=== PATIENT | male | born 1940 | race Caucasian/White ===

== ENCOUNTER 2020-10-08 08:55 | Day surgery (SDC) | payer OTHER, MEDICARE ==
[2020-10-05 16:04] VITALS: BMI 21.7
[2020-10-08] MEDS ORDERED: BUPIVACAINE HCL/PF 2.5 MG/ML - 30 ML VIAL IJ ONE (09:10)
[2020-10-08] MEDS ORDERED: MIDAZOLAM HCL 2 MG/2 ML SINGLE DOSE VIAL ONE ×2 (09:57→11:17)
[2020-10-08] MEDS ORDERED: BUPIVACAINE HCL/PF 0.5% (5MG/ML) 10 ML VIAL ONE ×2 (09:57→10:33)
[2020-10-08] MEDS ORDERED: BUPIVACAINE LIPOSOME/PF (EXPAREL) 266 MG/20 ML VIAL ONE (09:57)
[2020-10-08] MEDS ORDERED: VANCOMYCIN 1,000 MG VIAL (RESTRICTED TO ID ONLY) ONE ×2 (10:16→11:43)
[2020-10-08] MEDS ORDERED: ONDANSETRON 4 MG/2 ML VIAL ONE (10:52)
[2020-10-08] MEDS ORDERED: DEXAMETHASONE SOD PHOSPHATE 4 MG/1 ML VIAL ONE (10:52)
[2020-10-08] MEDS ORDERED: ONDANSETRON 4 MG/2 ML VIAL IVPUSH PRN (14:19)
[2020-10-08 14:29] VITALS: PULSE 62; TEMP 97.8
[2020-10-08] MEDS ORDERED: LACTATED RINGERS SOLUTION 1,000 ML IV SCH (14:30)
[2020-10-08 18:19] VITALS: BP 138/73
[2020-10-08] MEDS ORDERED: oxyCODONE HCL 5 MG TABLET ONE (18:20)
== END 2020-10-08 19:10 | disposition home or self-care (01) ==
LOC: FASU 08:55
PROVIDERS: ATTEND Orthopaedic Surgery Sports Medicine
PROC: 0LMM0ZZ Reattachment of Left Upper Leg Tendon, Open Approach (ICD-10-PCS; principal; 2020-10-08 11:01)
DX: S76.112A Strain of left quadriceps muscle, fascia and tendon, initial encounter (principal); X58.XXXA Exposure to other specified factors, initial encounter; Y93.9 Activity, unspecified; Y92.9 Unspecified place or not applicable
CPT/HCPCS: 94760